=== PATIENT | male | born 1975 | race Two or more races ===

== ENCOUNTER 2019-02-08 08:26 | Emergency (ER) | payer OTHER ==
[~2019-02-08] VITALS: Ht 170.2 cm; Wt 73.9 kg
--- NOTE | 2019-02-08 08:30 | NUR ---
PT BIB SELF C/O BLACK TARRY STOOL FOR 2 WEEKS, PT IS AAOX4, NOT IN RESPIRATORY DISTRESS, HOOKED TO MONITOR, KEPT RESTED AND COMFORTABLEM WILL CONTINUE TO MONITOR.
--- NOTE | 2019-02-08 08:39 | NUR ---
SEEN AND EXAMINED BU .
--- NOTE | 2019-02-08 08:50 | NUR ---
IV LINE ESTABLSIHED, BLOOD DRAWN AND SENT TO LAB.
[2019-02-08 08:58] LABS: BASOPHILS # (AUTO) 0.1 /CMM (0.0-0.2); BASOPHILS % (AUTO) 2.1 % (0.0-2.0); EOSINOPHILS % (AUTO) 3.7 % (0.0-6.0); HEMATOCRIT 37 % (39-51); HEMOGLOBIN 12.5 g/dL (13.5-17.5); LYMPHOCYTES # (AUTO) 1.2 /CMM (0.8-4.8); LYMPHOCYTES % (AUTO) 27.9 % (20.0-44.0); MEAN CORPUSCULAR HGB CONC 34 g/dl (31.0-36.0); MEAN CORPUSCULAR VOLUME 102 fL (80-96); MONOCYTES # (AUTO) 0.7 /CMM (0.1-1.30); MONOCYTES % (AUTO) 15.4 % (2.0-12.0); NEUTROPHILS # (AUTO) 2.2 /CMM (1.8-8.9); NEUTROPHILS % (AUTO) 50.9 % (43.0-81.0); PLATELET COUNT (AUTO) 60 /CMM (150-450); RED BLOOD CELL COUNT(AUTO) 3.61 MIL/uL (4.5-6.0); WHITE BLOOD COUNT (AUTO) 4.2 K/uL (4.3-11.0)
--- NOTE | 2019-02-08 08:59 | NUR ---
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
[2019-02-08 09:01] LABS: CREATININE 1.1 mg/dL (0.6-1.3); POTASSIUM 4.1 mmol/L (3.5-5.1)
[2019-02-08 09:10] LABS: ALBUMIN 2.5 g/dL (3.4-5.0); BILIRUBIN,DIRECT 0.4 mg/dL (0.0-0.2); BILIRUBIN,TOTAL 0.8 mg/dL (0.2-1.0); TOTAL PROTEIN, SERUM 7.3 g/dL (6.4-8.2)
--- NOTE | 2019-02-08 09:16 | NUR ---
PT IS BACK FROM THE CT SCAN.
--- NOTE | 2019-02-08 10:19 | NUR ---
IV removed. Catheter intact and site benign. Pressure and 4x4 applied to site. No bleeding noted. Patient discharged to home in stable condition. Written and verbal after care instructions given. Patient verbalizes understanding of instruction.
[2019-02-08 10:20] VITALS: BP 121/81
[2019-02-08 12:11] LABS: EOSINOPHILS % (MANUAL) 4 % (0-4); LYMPHOCYTES % (MANUAL) 29 % (16-48); MONOCYTES % (MANUAL) 14 % (0-11.0); NEUTROPHILS % (MANUAL) 53 (42-76)
== END 2019-02-08 10:21 | disposition home or self-care (01) ==
LOC: ER 08:26
DX: K70.30 Alcoholic cirrhosis of liver without ascites (principal); I85.10 Secondary esophageal varices without bleeding; K92.1 Melena; F10.20 Alcohol dependence, uncomplicated; F17.200 Nicotine dependence, unspecified, uncomplicated; Y90.9 Presence of alcohol in blood, level not specified
CPT/HCPCS: 36415; 71045-TC; 80048-TC; 80076-TC; 85025-TC; 85730-TC; 86850-TC